=== PATIENT | male | born 1960 | race Caucasian/White ===

== ENCOUNTER 2021-02-11 11:04 | Inpatient (IN) | payer MEDICARE, MEDICAID ==
[~2021-02-11] VITALS: Ht 175.3 cm; Wt 64.0 kg
[2021-02-11] MEDS ORDERED: ONDANSETRON HCL 4MG/2ML INJ IV STA (11:12)
[2021-02-11] MEDS ORDERED: SODIUM CHLORIDE 0.9% 1,000 ML IV ONE (11:15)
[2021-02-11 11:42] LABS: BG BASE EXCESS 2.3 mmol/L (-2.0-2.0); BG CARBOXYHEMOGLOBIN 0.1 % (0.5-1.5); BG DEOXYHEMOGLOBIN 1.9 % (0.0-5.0); BG METHEMOGLOBIN 0.3 % (0.0-1.5); BG OXYGEN SATURATION 98.1 % (92.0-98.5); BG OXYHEMOGLOBIN 97.7 % (94.0-97.0); BG PCO2 25.2 mmHg (35.0-45.0); BG PH 7.579 (7.350-7.450); BG PO2 92.6 mmHg (75.0-100.0); BG SAMPLE SITE LEFT BRACHIAL; BG TOTAL HEMOGLOBIN 12.2 g/dL (12.0-18.0); BG VENT MODE ROOM AIR
[2021-02-11 11:44] LABS: CLARITY URINE CLEAR (CLEAR); COLOR URINE YELLOW (YELLOW); KETONES URINE TRACE (NEGATIVE); LEUKOCYTE ESTERASE URINE NEGATIVE (NEGATIVE); NITRITE URINE NEGATIVE (NEGATIVE); OCCULT BLOOD URINE NEGATIVE (NEGATIVE); PH URINE 5.5 (4.5-8.0); PROTEIN URINE NEGATIVE (NEGATIVE)
[2021-02-11 12:10] LABS: EOSINOPHILS % 0.6 % (0.0-5.0); HEMATOCRIT. 36.6 % (42.0-52.0); HEMOGLOBIN. 11.7 g/dL (14.0-18.0); LYMPHOCYTES % 12.3 % (20.0-50.0); MEAN CORPUSCULAR HEMOGLOBIN 25.4 pg (28.0-32.0); MEAN CORPUSCULAR VOLUME 79.3 fL (80.0-94.0); MEAN PLATELET VOLUME 8.2 fl (7.4-10.4); MONOCYTES % 6.8 % (2.0-8.0); NEUTROPHILS % 79.3 % (40.0-76.0); PLATELET 461 x1000/uL (130-400); RED BLOOD CELL COUNT 4.62 mill/uL (4.7-6.1); RED CELL DISTRIBUTION WIDTH 16.2 % (11.6-14.6)
[2021-02-11] MEDS ORDERED: TOPUD PO (12:26)
[2021-02-11 12:27] LABS: PROTHROMBIN TIME 10.8 sec (9.6-11.0)
[2021-02-11 12:31] LABS: CHLORIDE 95 mEq/L (98-107)
[2021-02-11] MEDS ORDERED: INSULIN REGULAR (HUMULIN R) 300UNITS/3ML VIAL IV ONE (12:45)
[2021-02-11] MEDS ORDERED: ONDANSETRON HCL 4MG/2ML INJ IV ONE (13:00)
[2021-02-11] MEDS ORDERED: METOCLOPRAMIDE HCL 10MG/2ML VIAL IV ONE (13:15)
[2021-02-11 16:00] VITALS: BP 105/77
[2021-02-11 16:39] VITALS: BP 105/77
[2021-02-11] MEDS ORDERED: DEXTROSE 50% WATER 50ML SYRINGE IV PRN (16:45)
[2021-02-11] MEDS: BLOOD SUGAR DIAGNOSTIC STRIP TEST SCH ×2 (17:37→20:36)
[2021-02-11] MEDS: INSULIN LISPRO 100 UNITS/ML SUBCUT SCH ×2 (17:38→20:36)
[2021-02-11] MEDS: METOCLOPRAMIDE HCL 10MG/2ML VIAL IV SCH ×2 (17:47→17:51)
[2021-02-11] MEDS: INSULIN GLARGINE UD 100 UNITS/ML SYR SUBCUT SCH (17:55)
[2021-02-11] MEDS ORDERED: INSULIN GLARGINE UD 100 UNITS/ML SYR SUBCUT NR (18:00)
[2021-02-11] MEDS ORDERED: PANT40TA51 PO (18:32)
[2021-02-11] MEDS ORDERED: INSU100V40 (18:32)
[2021-02-11 20:00] VITALS: BP 94/58
[2021-02-12] VITALS: BP 101/59
[2021-02-12] MEDS ORDERED: TOPUD PO (01:01)
[2021-02-12] MEDS ORDERED: ESCI20TA PO (01:01)
[2021-02-12] MEDS ORDERED: MULT-230 PO (01:01)
[2021-02-12] MEDS ORDERED: GABA400C PO (01:01)
[2021-02-12] MEDS ORDERED: SUCR1TAB PO (01:01)
[2021-02-12] MEDS ORDERED: FERR325T6 PO (01:01)
[2021-02-12] MEDS ORDERED: PROT40 PO (01:01)
[2021-02-12] MEDS ORDERED: SYN200 PO (01:01)
[2021-02-12] MEDS ORDERED: MAGN400T39 PO (01:01)
[2021-02-12] MEDS ORDERED: ASCO500C15 PO (01:01)
[2021-02-12] MEDS ORDERED: MIDO10TA PO (01:01)
[2021-02-12] MEDS ORDERED: BLOO-340 IN (01:01)
[2021-02-12] MEDS ORDERED: HYDR-4001 PO (01:01)
[2021-02-12] MEDS ORDERED: MONT10TA21 PO (01:01)
[2021-02-12] MEDS ORDERED: HUM100IN SQ (01:01)
[2021-02-12] MEDS ORDERED: RIVA10TA PO (01:01)
[2021-02-12 04:00] VITALS: BP 103/62
[2021-02-12] MEDS: METOCLOPRAMIDE HCL 10MG/2ML VIAL IV SCH ×4 (06:10→18:01)
[2021-02-12 06:16] LABS: CHLORIDE 92 mEq/L (98-107)
[2021-02-12 06:21] LABS: BASOPHILS % 0.9 % (0.0-2.0); EOSINOPHILS % 1.2 % (0.0-5.0); HEMATOCRIT. 31.7 % (42.0-52.0); HEMOGLOBIN. 10.2 g/dL (14.0-18.0); LYMPHOCYTES % 7.2 % (20.0-50.0); MEAN CORPUSCULAR HEMOGLOBIN 25.6 pg (28.0-32.0); MEAN CORPUSCULAR VOLUME 79.4 fL (80.0-94.0); MEAN PLATELET VOLUME 8.2 fl (7.4-10.4); MONOCYTES % 5.3 % (2.0-8.0); NEUTROPHILS % 85.4 % (40.0-76.0); PLATELET 537 x1000/uL (130-400); RED BLOOD CELL COUNT 3.99 mill/uL (4.7-6.1); RED CELL DISTRIBUTION WIDTH 16.4 % (11.6-14.6)
[2021-02-12] MEDS: BLOOD SUGAR DIAGNOSTIC STRIP TEST SCH ×4 (06:39→21:59)
[2021-02-12] MEDS ORDERED: INSULIN LISPRO 100 UNITS/ML SUBCUT SCH (07:15)
[2021-02-12 08:00] VITALS: BP 93/67
[2021-02-12] MEDS: INSULIN LISPRO 100 UNITS/ML SUBCUT SCH ×4 (08:29→21:00)
[2021-02-12] MEDS ORDERED: PANTOPRAZOLE SODIUM 40 MG/VIAL IV SCH (09:00)
[2021-02-12] MEDS: SODIUM CHLORIDE 0.9% 1,000 ML IV SCH ×2 (09:50→23:41)
[2021-02-12] MEDS: INSULIN GLARGINE UD 100 UNITS/ML SYR SUBCUT SCH ×2 (10:00→23:42)
[2021-02-12 12:00] VITALS: BP 102/64
[2021-02-12] MEDS ORDERED: BISACODYL 10MG SUPP PR NR (12:45)
[2021-02-12] MEDS ORDERED: BISACODYL 10MG SUPP PR PRN (12:45)
[2021-02-12] MEDS ORDERED: LACTULOSE 20G/30ML UDC PO NR (12:45)
[2021-02-12 16:00] VITALS: BP 91/57
[2021-02-12] MEDS: DOCUSATE SODIUM 100MG CAPSULE PO SCH (17:05)
[2021-02-12] MEDS: PANTOPRAZOLE SODIUM 40 MG/VIAL IV SCH (17:05)
[2021-02-12 20:00] VITALS: BP 98/60
[2021-02-12] MEDS: SENNOSIDES/DOCUSATE SOD 8.6/50MG TABLET PO SCH (22:09)
[2021-02-13] MEDS: METOCLOPRAMIDE HCL 10MG/2ML VIAL IV SCH ×5 (00:59→21:26)
[2021-02-13 05:59] LABS: EOSINOPHILS % 6.5 % (0.0-5.0); HEMATOCRIT. 27.5 % (42.0-52.0); LYMPHOCYTES % 23.9 % (20.0-50.0); MEAN CORPUSCULAR HEMOGLOBIN 25.7 pg (28.0-32.0); MEAN CORPUSCULAR VOLUME 78.7 fL (80.0-94.0); MONOCYTES % 7.4 % (2.0-8.0); NEUTROPHILS % 61.2 % (40.0-76.0); PLATELET 449 x1000/uL (130-400); RED BLOOD CELL COUNT 3.49 mill/uL (4.7-6.1); RED CELL DISTRIBUTION WIDTH 15.8 % (11.6-14.6)
[2021-02-13 06:02] LABS: PROTHROMBIN TIME 10.4 sec (9.6-11.0)
[2021-02-13 06:37] LABS: HEPATITIS B SURFACE ANTIGEN NEGATIVE
[2021-02-13 06:51] LABS: CHLORIDE 100 mEq/L (98-107)
[2021-02-13] MEDS: BLOOD SUGAR DIAGNOSTIC STRIP TEST SCH ×4 (07:20→21:26)
[2021-02-13] MEDS: INSULIN LISPRO 100 UNITS/ML SUBCUT SCH ×4 (07:50→21:00)
[2021-02-13 08:15] VITALS: BP 101/61
[2021-02-13] MEDS: POTASSIUM CHLORIDE 20MEQ TABLET SR PO NR ×2 (08:30→21:26)
[2021-02-13] MEDS: DOCUSATE SODIUM 100MG CAPSULE PO SCH ×2 (09:00→17:00)
[2021-02-13] MEDS: PANTOPRAZOLE SODIUM 40 MG/VIAL IV SCH ×2 (09:00→17:00)
[2021-02-13] MEDS ORDERED: INSULIN GLARGINE UD 100 UNITS/ML SYR SUBCUT SCH (10:00)
[2021-02-13] MEDS ORDERED: LIDOCAINE HCL/PF 1% 10 MG/ML 5ML VIAL ONE (10:50)
[2021-02-13] MEDS ORDERED: PROPOFOL 200MG/20ML VIAL IV ONE (10:50)
[2021-02-13] MEDS ORDERED: HYDROMORPHONE HCL/PF 2MG/ML CPJ IV PRN (11:15)
[2021-02-13] MEDS ORDERED: LABETALOL 5MG/ML SYR 20 MG/4 ML SYRINGE IV PRN (11:15)
[2021-02-13] MEDS ORDERED: ONDANSETRON HCL 4MG/2ML INJ IV PRN (11:15)
[2021-02-13] MEDS ORDERED: MEPERIDINE HCL/PF 25MG/ML CPJ IV PRN (11:15)
[2021-02-13 12:20] VITALS: BP 106/64
[2021-02-13] MEDS: SUCRALFATE 1 G/10 ML UDC PO SCH ×3 (14:09→21:26)
[2021-02-13] MEDS: SODIUM CHLORIDE 0.9% 1,000 ML IV SCH (14:09)
[2021-02-13 16:36] VITALS: BP 109/72
[2021-02-13 20:00] VITALS: BP 113/77
[2021-02-13] MEDS: SENNOSIDES/DOCUSATE SOD 8.6/50MG TABLET PO SCH (21:26)
[2021-02-14] VITALS: BP 103/54
[2021-02-14] MEDS: SODIUM CHLORIDE 0.9% 1,000 ML IV SCH ×2 (01:00→14:20)
[2021-02-14] MEDS: METOCLOPRAMIDE HCL 10MG/2ML VIAL IV SCH ×2 (06:02→12:28)
[2021-02-14] MEDS: SUCRALFATE 1 G/10 ML UDC PO SCH ×2 (06:02→12:28)
[2021-02-14] MEDS: BLOOD SUGAR DIAGNOSTIC STRIP TEST SCH ×2 (06:19→11:57)
[2021-02-14 07:06] LABS: BASOPHILS % 2.2 % (0.0-2.0); EOSINOPHILS % 11.6 % (0.0-5.0); HEMATOCRIT. 29.5 % (42.0-52.0); HEMOGLOBIN. 9.6 g/dL (14.0-18.0); MEAN CORPUSCULAR HEMOGLOBIN 25.8 pg (28.0-32.0); MEAN CORPUSCULAR VOLUME 79.5 fL (80.0-94.0); MEAN PLATELET VOLUME 8.1 fl (7.4-10.4); MONOCYTES % 7.5 % (2.0-8.0); NEUTROPHILS % 45.7 % (40.0-76.0); PLATELET 450 x1000/uL (130-400); RED BLOOD CELL COUNT 3.71 mill/uL (4.7-6.1)
[2021-02-14 07:22] LABS: CHLORIDE 103 mEq/L (98-107)
[2021-02-14 07:41] LABS: FOLIC ACID (FOLATE) SERUM 13.8 ng/mL (>5.38)
[2021-02-14 07:49] LABS: TOTAL IRON BINDING CAPACITY 212 ug/dL (250-450)
[2021-02-14] MEDS: INSULIN LISPRO 100 UNITS/ML SUBCUT SCH ×2 (07:50→12:29)
[2021-02-14 08:00] VITALS: BP 107/74
[2021-02-14] MEDS: DOCUSATE SODIUM 100MG CAPSULE PO SCH (09:03)
[2021-02-14] MEDS: PANTOPRAZOLE SODIUM 40 MG/VIAL IV SCH (09:03)
[2021-02-14 11:03] VITALS: BP 107/74
[2021-02-14 12:00] VITALS: BP 88/53
== END 2021-02-14 16:30 | DRG 241 ==
LOC: ER 11:26 → 6WST 14:12 → ENRESERV 15:18
PROVIDERS: ADMIT Internal Medicine; ATTEND Internal Medicine
PROC: 0DB78ZX Excision of Stomach, Pylorus, Via Natural or Artificial Opening Endoscopic, Diagnostic (ICD-10-PCS; principal; 2021-02-13)
DX: K29.71 Gastritis, unspecified, with bleeding (principal); E11.00 Type 2 diabetes mellitus with hyperosmolarity without nonketotic hyperglycemic-hyperosmolar coma (NKHHC); K22.11 Ulcer of esophagus with bleeding; E11.43 Type 2 diabetes mellitus with diabetic autonomic (poly)neuropathy; E44.0 Moderate protein-calorie malnutrition; E87.8 Other disorders of electrolyte and fluid balance, not elsewhere classified; K31.84 Gastroparesis; D64.9 Anemia, unspecified; E87.1 Hypo-osmolality and hyponatremia; E11.65 Type 2 diabetes mellitus with hyperglycemia; D72.829 Elevated white blood cell count, unspecified; F03.90 Unspecified dementia, unspecified severity, without behavioral disturbance, psychotic disturbance, mood disturbance, and anxiety; I10 Essential (primary) hypertension; Z20.822 Contact with and (suspected) exposure to COVID-19; K59.00 Constipation, unspecified; K76.0 Fatty (change of) liver, not elsewhere classified; R74.01 Elevation of levels of liver transaminase levels; R79.89 Other specified abnormal findings of blood chemistry; K44.9 Diaphragmatic hernia without obstruction or gangrene; Z68.20 Body mass index [BMI] 20.0-20.9, adult
CPT/HCPCS: 36415; 36600; 74176; 76700; 80048; 80053; 81003; 82010; 82375; 82607; 82728; 82746; 82805; 82962; 83036; 83540; 83550; 84145; 84450; 84460; 85025; 85044; 86705; 86709; 86803; 86850; 86870; 86900; 87340; 87426; 88305; 88312; 88313; 99285; C9113; J1815; J2405; J2704; J2765; J3490; J7030